=== PATIENT | male | born 1960 | race Caucasian/White ===

== ENCOUNTER → 2019-05-15 | Day surgery (SDC) | payer BC ==
[~2019-05-15] MED LIST: Propofol 200 MG/20 ML SDV IV ONE; fentaNYL 100 MCG/2 ML SDV IV ONE
[2019-05-15] MEDS: Lactated Ringers 1,000 ML IV SCH (07:03)
[2019-05-15 09:00] VITALS: BP 120/71; PULSE 67
--- NOTE | 2019-05-18 08:48 | OR ---
DATE OF OPERATION: 05/15/2019 PREOPERATIVE DIAGNOSIS: SCREENING COLONOSCOPY. POSTOPERATIVE DIAGNOSIS: SCREENING COLONOSCOPY. SURGEON: Deshaun Hudson MD PROCEDURE: FULL-LENGTH COLONOSCOPY WITH FORCEPS POLYP REMOVAL X1. ANESTHESIA: MAC. COMPLICATIONS: None. SPECIMEN: Small sessile polyp, sigmoid colon, approximately 4 to 5 mm. FINDINGS: 1. Full-length colonoscopy. 2. Sessile polyp, sigmoid colon. RECOMMENDATIONS: Followup colonoscopy in 5 years. INDICATIONS: The patient had a prior colonoscopy 6 years ago, was incomplete. Alonso Hadny elected to send him for a routine screen. DESCRIPTION OF PROCEDURE: The patient was prepped and draped, placed in the left lateral decubitus position. A lubricated Olympus colonoscope was inserted and ultimately advanced to the cecum. The patient is quite tortuous, and due to his thin stature, he is a difficult scope, but we were able to pass the area of the splenic flexure where it is a tight bend and easily get down to the cecal pouch. The bowel prep was fine. Upon withdrawal, the right transverse and descending colons were completely unremarkable. In the proximal to mid sigmoid around 55 cm, the patient had a flat sessile polyp about 4 to 5 mm. It was kind of lengthy. We took off with 3 separate forceps in its entirety without any complication. The rest of the sigmoid had no masses, polyps, ulceration, or bleeding sites. No vascular abnormalities or signs of colitis. The rectal vault was benign. Retroflexion of the scope in the rectum showed no anal lesions. Air was suctioned, scope removed without complication. TRENTON/BERTHA /[id number]
== END | disposition home or self-care (01) ==
LOC: CC.SDS 06:43
PROVIDERS: ATTEND Family Medicine
DX: Z12.11 Encounter for screening for malignant neoplasm of colon (principal); D12.5 Benign neoplasm of sigmoid colon; Q43.8 Other specified congenital malformations of intestine; E10.9 Type 1 diabetes mellitus without complications; I10 Essential (primary) hypertension; F17.210 Nicotine dependence, cigarettes, uncomplicated; R97.20 Elevated prostate specific antigen [PSA]; Z79.82 Long term (current) use of aspirin; Z79.899 Other long term (current) drug therapy; Z90.49 Acquired absence of other specified parts of digestive tract; Z87.438 Personal history of other diseases of male genital organs
CPT/HCPCS: 45380; J2704; J3010; J7120

== ENCOUNTER → 2024-04-10 | Day surgery (SDC) | payer BC ==
[~2024-04-10] MED LIST changes: +Ketamine 200 MG/20 ML MDV ONE; +Midazolam 1 MG/ML 2 ML SDV ONE; -Propofol 200 MG/20 ML SDV IV ONE; +Propofol 200 MG/20 ML SDV ONE; -fentaNYL 100 MCG/2 ML SDV IV ONE; +fentaNYL 50 MCG/ML SDV ONE
[2024-04-10] MEDS: Lactated Ringers 1,000 ML IV SCH (08:27)
[2024-04-10 10:10] VITALS: BP 143/77; PULSE 69
== END ==
LOC: CC.SDS 08:03
PROVIDERS: ATTEND Family Medicine
DX: Z12.11 Encounter for screening for malignant neoplasm of colon (principal); D12.3 Benign neoplasm of transverse colon; D12.5 Benign neoplasm of sigmoid colon; K57.30 Diverticulosis of large intestine without perforation or abscess without bleeding; C91.10 Chronic lymphocytic leukemia of B-cell type not having achieved remission; Z86.0100 Personal history of colon polyps, unspecified; E10.9 Type 1 diabetes mellitus without complications; N40.1 Benign prostatic hyperplasia with lower urinary tract symptoms; R35.1 Nocturia; E78.5 Hyperlipidemia, unspecified; F17.200 Nicotine dependence, unspecified, uncomplicated; Z79.899 Other long term (current) drug therapy
CPT/HCPCS: 00811; 45380; J2250; J2704; J3010; J3490; J7120